=== PATIENT | female | born 1960 | race Caucasian/White ===

== ENCOUNTER → 2021-11-07 07:21 | Outpatient (CLI) | payer OTHER, SELFPAY ==
--- NOTE | ~2021-11-07 | MM_ITS ---
EXAMINATION: MM screening domenica BI w darrick HISTORY: Screening TECHNIQUE: Craniocaudal and mediolateral oblique 3-D tomosynthesis images were obtained and synthetic 2-D images were generated. CAD analysis was submitted and interpreted. COMPARISON: 05/08/2019 BREAST PARENCHYMAL COMPOSITION: The breasts are heterogeneously dense, which may obscure small masses . FINDINGS: There is no evidence of suspicious mass, calcification, or architectural distortion to sugg est malignancy in either breast. There has been no suspicious interval change. IMPRESSION: 1. No mammographic evidence of malignancy. 2. Recommend routine screening mammography in one year. BI-RADS Category 1: Negative Reviewed, dictated and finalized at location A.
== END ==
PROVIDERS: PCP Nurse Practitioner Obstetrics & Gynecology; Visit Provider Nurse Practitioner Obstetrics & Gynecology
DX: Z12.31 Encounter for screening mammogram for malignant neoplasm of breast (principal)
CPT/HCPCS: 77063; 77067

== ENCOUNTER 2025-02-22 12:21 | Emergency (ER) | payer SELFPAY ==
[2025-02-22 12:33] VITALS: BP 141/73; PULSE 72; RESP 16; TEMP 37.1; O2SAT 99
[2025-02-22 12:35] LABS: EDUAAPPEAR Cloudy; EDUABILI Negative (Negative); EDUABLOOD 3+ (Negative); EDUACOLOR1 Yellow; EDUAGLUCOSE Negative (Negative); EDUAKETONE Negative (Negative); EDUALEUKO 1+ (Negative); EDUANITRATE Negative (Negative); EDUAPH 5.5; EDUAPROTEIN Negative (Negative); EDUASPGRAVITY 1.025; EDUAUROBILI 0.2
--- NOTE | 2025-02-22 14:24 | ED_ITS ---
HPI - Female Genitourinary General Chief complaint: Urogenital-Female Stated complaint: Uti Sympyoms Time Seen by Provider: 02/22/25 13:05 Source: patient and RN notes reviewed Mode of arrival: ambulatory Limitations: no limitations History of Present Illness HPI Narrative: 64-year-old female presents Express Care complaining of urinary symptoms for 1 day. Patient reports having dysuria, increased frequency, and hesitancy. Patient denies any fevers, abdominal pain, body aches, chills, nausea, vomiting, hematuria, diarrhea. Patient has not taken anything brol-ptf-bkaixrb for symptoms. Patient denies any significant past medical history. Related Data Allergies Allergy/AdvReac Type Severity Reaction Status Date / Time nickel Allergy Unknown RASH Verified 02/22/25 12:34 Review of Systems Review of Systems: CONSTITUTIONAL: Denies fever, chills, body aches, or sweats. EYES: Denies visual changes, redness, or discharge. ENT: Denies rhinorrhea, congestion, sore throat, or otalgia. CARDIOVASCULAR: Denies chest pain, palpitations, or edema. RESPIRATORY: Denies cough or dyspnea. GASTROINTESTINAL: Denies abdominal pain, nausea, vomiting, or diarrhea. GENITOURINARY: Positive for dysuria, increased frequency and hesitancy. Negative for hematuria. SKIN: Denies rash or itching. MUSCULOSKELETAL: Denies back pain, joint pain, or myalgia. NEUROLOGIC: Denies headache, numbness, or weakness. PSYCHIATRIC: Denies anxiety or depression. All other systems reviewed are negative, except as documented in HPI. [facility] Family History Family History Sibling Family history of gallbladder disease Mother Acute myocardial infarction Social History Social History Smoking status: Current every day smoker Smoking end date: 08/16/07 Alcohol intake: never Comments At the time of my signature, I reviewed and agree with the nursing past medical, surgical, social, and family history. There is no relevant family history pertinent to the patient complaint. Exam Narrative: GENERAL: This is a well-nourished, well-developed adult, in no apparent distress. They are non ill-appearing, nontoxic appearing. HEAD: normocephalic, atraumatic. EYES: Sclera clear/white. Vision is grossly intact. Conjunctiva normal bilaterally. Extraocular movements intact. EARS: External ears normal,Hearing grossly intact. NOSE: External nose normal THROAT: Mucous membranes moist NECK: Normal range of motion CARDIOVASCULAR: Regular rate and rhythm. Normal S1-S2. No clicks, gallops, rubs, murmurs. RESPIRATORY: Respiratory rate normal, respiratory effort nonlabored, no respiratory distress. Lung sounds clear to auscultation throughout. Lung sounds equal bilaterally. No adventitious lung sounds. GASTROINTESTINAL: Abdomen soft, flat, non-tender, nondistended. Bowel sounds are active. No hepato-splenomegaly, or palpable masses. No guarding. No rebound tenderness. SKIN: warm, Dry, intact with no suspicious lesions or rash, good texture and turgor. NEURO: awake, alert, and oriented to person, place and time. There were no obvious focal neurologic abnormalities. EXTREMITIES: No joint tenderness, effusion, or edema noted. BACK: Nontender without deformity. No CVA tenderness. Course Course Emergency Course: Portions of this record may have been created with voice recognition software Level of Care: Express Care Visit Vital Signs Vital signs: Vital Signs Temperature 98.8 F 02/22/25 12:33 Pulse Rate 72 02/22/25 12:33 Respiratory Rate 16 02/22/25 12:33 Blood Pressure 141/73 H 02/22/25 12:33 Pulse Oximetry 99 02/22/25 12:33 Temperature 98.8 F 02/22/25 12:33 Pulse Rate 72 02/22/25 12:33 Respiratory Rate 16 02/22/25 12:33 Blood Pressure 141/73 H 02/22/25 12:33 Pulse Oximetry 99 02/22/25 12:33 MDM - Female Genitourinary MDM Narrative Medical decision making narrative: Urine dipstick shows evidence of urinary tract infection. Urine culture pending. Will treat with Keflex. Discussed physical exam findings. Advised supportive measures and signs/symptoms to go to the ER. Pt is appropriate for outpt treatment and f/u. Differential Diagnosis Differential diagnosis: Likely urinary tract infection, cystitis and other (Pyelonephritis) Lab Data Attestation: I reviewed the patient's lab results. Labs: Lab Results 02/22/25 Range/Units 12:33 POC Urine Color Yellow POC Urine Clarity Cloudy POC Urine pH 5.5 POC Ur Specif Mauldin 1.025 POC Urine Protein Negative (Negative) POC Ur Glucose (UA) Negative (Negative) POC Urine Ketones Negative (Negative) POC Urine Blood 3+ (Negative) POC Urine Nitrite Negative (Negative) POC Urine Bilirubin Negative (Negative) POC Urine Urobilinogen 0.2 POC U Leukocyte Esteras 1+ (Negative) Discharge Plan Discharge Clinical Impression: Urinary tract infection Qualifiers: Urinary tract infection type: site unspecified Hematuria presence: with hematuria Qualified Code(s): N39.0 - Urinary tract infection, site not specified Patient Disposition: Home Condition: Stable Instructions: Antibiotic Form, Urinary Tract Infection in Women (ED) Additional Instructions: Take the antibiotic as prescribed The urine will be sent of for a culture to identify what type of bacteria is causing your infection. If the culture shows that the antibiotic will not get rid of your infection, you will be notified and a new antibiotic will be called in for you. Increase water intake you will need to follow up with your PCP 3-5 days. Go to the ER for any worsening symptoms, abdominal pain, fevers, nausea, vomiting, or any other concerns Patient Language: Ghanaian Prescriptions: New cephalexin 500 mg capsule 500 mg PO BID 5 Days Qty: 10 0RF Follow-up/Referrals: Erick Cortes MD [Primary Care Provider] - Time of Disposition: 13:21
== END 2025-02-22 13:25 | disposition home or self-care (01) ==
PROVIDERS: PCP Family Medicine
DX: N39.0 Urinary tract infection, site not specified (principal); Z87.891 Personal history of nicotine dependence
CPT/HCPCS: 81003; 87086; 99213; G0463

== ENCOUNTER 2025-02-23 19:23 | Emergency (ER) | payer BC, SELFPAY ==
--- NOTE | ~2025-02-23 | CT_ITS ---
CT abdomen pelvis wo con Ordering provider: Edu Licea History: 64 years Female with . kidney stone eval . Comparison: June 11, 2011 Technique: CT abdomen and pelvis without IV and without oral contrast. Automated exposure control and iterative reconstruction technique were employed. The dose-length product was 341.14 mGy-cm. Findings: VISUALIZED LOWER CHEST: Underlying emphysematous changes. UPPER ABDOMINAL ORGANS: Liver: Normal. Tiny cyst seen in the right lobe of the liver near to the gallbladder. Gallbladder: Normal. Spleen: Normal. Stomach/duodenum: Normal. Pancreas: Normal. Adrenals: Normal. Kidneys: Stone in the left lower ureter measuring 5.4 mm with left moderate hydronephrotic changes. P erinephric fat stranding seen which may indicate high-grade obstruction. PELVIC ORGANS: The bladder is underfilled. BOWEL AND MESENTERY: Colon: No evidence of diverticulitis. Normal appendix. Small Bowel: Normal. No obstruction. Peritoneum/mesentery: No free air or free fluid. No mesenteric lymphadenopathy. RETROPERITONEUM: Mild atheromatous disease of the abdominal aorta. No retroperitoneal lymphadenopat hy. MUSCULOSKELETAL: Superficial soft tissues: The superficial soft tissues are normal. Bones: Age appropriate degenerative changes of the spine. Bilateral sacroiliacs. IMPRESSION: 1. Stone in the left lower ureter with moderate hydronephrotic changes. 2. No evidence of appendicitis, diverticulitis or intestinal obstruction. Reviewed, dictated and finalized at location A.
--- OUTSIDE RECORDS SUMMARY | 2025-02-23 19:24 | XMS_ITS | Data Portability ---
Author Organization [facility] [place] Address [address] [place] [address] Assessment Encounter Date Assessment Date Assessment LastModified by Organization Details LastModified Time 06/21/2021 06/21/2021 Annual gynecological exam performed. Patient will come back in a year unless there are new symptoms. [email or web address] Not available 06/21/2021 12:34:15 Plan of Treatment Reminders Order Date Submit Date Provider Last Modified By Organization Details Last Modified Time Details Appointments None recorded. Lab None recorded. Referral gastroenter ologist referral - Please contact Gem to schedule her for a screening colonoscopy appt. If you have any qeustions or require further information , please contact me at [phone]. Thank you, VICK Keene 2020 021 [email or web address] Maverick Castrejon MD, [address], [address], [place], [address], 2 10:21:05 Procedures None recorded. Surgeries None recorded. Imaging None recorded. Medication Orders None recorded. Patient TargetsNo targets recorded. Patient InstructionsNo instructions recorded. 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 If you have any qeustions or require further information, please contact me at [phone]. 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 Elect salinas beebe kennedy d by Franko Hernandez ed, CT on 06/28 at 2:11 PM ----- ----- ----- ----- ----- ----- ----- ----- ----- ----- ----- ----- ----- ----- ----- ----- ----- ---- HPV RESUL TS: HPV mRNA E6/E7 : No HPV mRNA Detec lizette NOTE: This high risk HPV mRNA assay detec ts fourt een high- risk HPV types (16, 18, 31, 33, 35, 39, 45, 51, 52, 56, 58, 59, 66, 68) witho ut diffe renti ation . COMME NT: Note: This speci men was revie wed by a Cytot echno logis t and/o r Patho logis t (as indic ated in this repor t) after evalu ation using the Thinp rep Imagi ng Syste m. CLINI MIKEY INFOR MATIO N: Menst rual Statu s: LMP (if appli cable ): Clini mikey Histo ry/Pr eviou s Pap: Type of Neopl domenic (if appli cable ): Signi fican t Clini mikey Findi ngs: Other Histo ry: Hormo tay (if appli cable ): PAP EDUCA GUILLERMINA L NOTE: The Pap Test is a scree desiree test with an inher ent false negat irvin rate. Liqui d-bas e sampl ing may decre ase, but will not elimi ford, false negat irvin resul ts. A negat irvin resul t does not precl ude the prese nce and/o r devel opmen t of disea se, since the prese nce of abnor mal cells in the sampl e depen ds on the locat ion of the lesio n and sampl ing techn ique. Eliseo nued regul ar scree desiree is the best metho d of cance r preve ntion . If repor lizette cytol ogic findi ng do not corre late with physi mikey and/o r histo rical findi ngs, furth er inves tigat ion is recom maurizio d, as clini wade warra nted. Not Available [facility] (Lab) [address], [place], [address], 06/28/2021 15:14:19 11/08/19 22 11/07/2021 MAMMO , scree desiree, bilat eral No observ ation record ed. [facility] [address], [place], [address], 11/07/2021 20:17:15 11/08/19 22 11/07/2021 MAMMO , scree desiree, bilat eral No observ ation record ed. [facility] [address], [place], [address], 11/07/2021 20:18:42 Result Notes None recorded. 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 16:06:27 Human papillom avirus deoxyrib onucleic acid detected , high risk on cervical specimen [id number] Completed 201806/19/2021 Cervical high risk HPV DNA test positive ;Recorde d Elsewher e: No Locat ion: [facility] S ource: EHR Pediatric Hospitalist tl: N Practi ce ID: [id number] Reyes lable Time: 08:30:00 AM Yelena lugo [facility] 16:06:24 Problem Notes None recorded. Procedures Surgical History Date Name Laterality Status Provider Name and Address Organization Details Recorded Time 06/21/20 21 Date of Last Pap Smear completed Yelena Posada [facility] 06/21/2021 12:34:59 08/16/19 13 lithotripsy completed Yelenasushant Posada [facility] 06/19/2021 16:11:15 08/16/18 85 extraction of wisdom tooth completed Yelenasushant Posada [facility] 06/21/2021 12:37:20 Imaging Results None recorded. Procedure Notes None recorded. Medical Equipment None Reported. Allergies No known drug allergies Medications Not known to be on any medication Vitals Date Recorded Body height Body mass index (BMI) Body weight Systolic And Diastolic Provider Name and Address Organization Details Last Updated DateTime 06/21/2021 177.8 cm 28.6 kg/m2 53018.88 g 120/80 mm[Hg] Yelena Posada [facility] 06/21/2021 12:34:42 Social History Question Answer Notes LastModified by Organizat ion Details LastModified Time Tobacco Smoking Status Current Some Day Smoker Yelena lugo [facility] 06/21/2021 12:37:03 Are You Blind Or Do You Have Difficulty Seeing? No [email or web address] Information n ot available 06/21/2021 What Is Your Level Of Caffeine Consumption? Heavy [email or web address] Information not available 06/21/2021 In The 14 Days Before Symptom Onset, Have You Had Close Contact With A Laboratory-confirm ed COVID-19 While That Case Was Ill? No [email or web address] Information n ot available 06/21/2021 In The 14 Days Before Symptom Onset, Have You Had Close Contact With A Person Who Is Under Investigation For COVID-19 While That Person Was Ill? No [email or web address] Information not available 06/21/2021 Have You Been To An Area Known To Be High Risk For COVID-19? No [email or web address] Information not available 06/21/2021 Are You Deaf Or Do You Have Serious Difficulty Hearing? No [email or web address] Information not available 06/21/2021 What Type Of Diet Are You Following? REGULAR [email or web address] Information n ot available 06/21/2021 Have You Ever Been Counseled For Unhealthy Alcohol Use? No [email or web address] Information not available 06/21/2021 Do You Use Your Seat Belt Or Car Seat Routinely? Yes [email or web address] Information not available 06/21/2021 Do You Have Smoke And Carbon Monoxide Detectors In Your Home? Yes [email or web address] Information not available 06/21/2021 Do You Use Sunscreen Routinely? Yes [email or web address] Information not available 06/21/2021 Has Tobacco Cessation Counseling Been Provided? No [email or web address] Information not available 06/21/2021 Sex: Unknown Functional Status Question Answer Note LastModified by Organizat ion Details LastModified Time Do you use any illicit or recreational drugs? No Information not available 06/21/2021 Do you or have you ever used any other forms of tobacco or nicotine? No [email or web address] Information not available 06/21/2021 What is your level of alcohol consumption? Occasional [email or web address] Information not available 06/21/2021 Are you able to walk? YESWOREST [email or web address] Information not available 06/21/2021 What is your exercise level? Occasional [email or web address] Information not available 06/21/2021 Mental Status Question Answer Note LastModified by Organization D etails LastModified Time Do you feel stressed (tense, restless, nervous, or anxious, or unable to sleep at night)? [id number] [email or web address] Information not available 06/21/2021 Family History Relationship Description Onset Age of this Age Resolved Age Notes LastModified by Organization Details LastModified Time Mother Heart disease [email or web address] Not available 06/19 16:09:10 Maternal Grandmother Malignant tumor of breast [email or web address] Not available 06/19 16:09:21 Father Pulmonary embolism [email or web address] Not available 06/19 16:09:55 Notes:Father: Pulmonary embo lism Maternal grandmother: Cancer, breast Mother: Heart disease Medical History Condition Response Other N Blood Transfusion N Dermatologic Disorders N Gestational Diabetes N Anxiety Disorder N Autoimmune disease N Arthritis N Polyps N Infertility N Acid Reflux (GERD) N Cancer N Varicosities N Stroke N Neurologic/Epilepsy N Fibromyalgia N Headaches N Kidney Disease N Heart Problems N Kidney or Bladder Problems Y Eating Disorder N Art (IVF or FET) N Hepatitis/Liver Disease N No Past Medical History N Urinary Tract Infection N Asthma N Trauma/Violence N Thrombophilias N Allergies (Food, seasonal, environmental ) Y Breast Cancer N Drug/Latex Allergies/Reactions N Lung Disease N Defects or Inherited Disease N Breast Problem N Hematologic disorders N Anesthesia Complications N History of STI N Deep Vein Thrombosis N Polycystic ovary syndrome N History of abnormal pap N Endometriosis N High Cholesterol N Thyroid Problems N GI Problems N Anemia N Psychiatric Illness N Ovarian Cancer N Diabetes N Pulmonary (TB, Asthma) N Eczema N Abuse/Domestic Violence N Depression/ depression N Heart Disease N Pre-Eclampsia N Hypertension N Osteoporosis N Gynecological History Statement/Question Response If Post Menopausal, Age at Menopause 42 Abnormal Pap Y Date of Last Mammogram Date of LMP 08/16/2002 STIs/STDs Y HPV Vaccine N Date of Last Pap Smear 06/21/2021 Sexual Problems? N Current Control Method Menopause LMP Approximate 03/21/2019 Obstetrics History GPAL:G 1 P 1 0 0 1 Type Value Full Term 1 Living 1 Total 1 Past Encounters Encounter ID Performer Location Encounter Start Date Encounter Closed Date Diagnosis/Indication Diagnosis SNOMED-CT Code Diagnosis ICD10 Code Diagnosis Note [id number] Ivonne Lund [facility] [address] [address] 06/21/2021 12:25:36 06/23/2021 10:41:35 Gynecologic examination 98919336 Z01.419 Take Calcium with Vitamin D 12-1500mg daily. Do monthly self breast exams. It is advised to get annual flu shot in the fall and she could obtain at [facility] or [facility] care clinic. If you haven't received the Tdap vaccine in the last 10 years you should obtain one as well. Have mammogram yearly, bone density every 2-3 years and colonoscop y every 5-10 years depending on findings and history. Engage in daily exercise of low impact aerobic exercise 45-60 minutes 4-5 times weekly. Avoid tobacco and illicit drugs as well as using moderation with alcohol intake less than 1-2 8 oz beverages daily. This lifestyle behavior pattern will lead to less health conditions and longer life span. If BMI greater than 25 weight watchers or dietary consult advised. Questions have been answered. Patient appears to understand instructio ns, but if you have any further questions call or respond to this email Pap/hpv sentSmoker -smoking cessation encouraged Est care with a PCP (Given [facility] in [place], [place]).Dexa-c onsider no later than age 60yo since postmenopa use & smoker.Minerva mo -orderedCo lisa-Recomm ended & orderedDec lines std screen Screening colonoscopy 44 [id number] Z12.11 Never had Colon screening Health Concerns Section Related Observation LastModified by Organization Detai ls LastModified Time None Recorded Concern Status LastModified by Organization Details LastModified Time None Recorded Advance Directives Directive None Recorded Payers Insurance Date Sequence Insurance Name Policy Number Policy Franco Covered Member ID Franco Member ID Guarantor Name 02/25/2022 1 [facility] [id number] Gem Parks [id number] Gem Parks Notes Date Note Type Note Provider Name and Address Organization Details Recorded Time 06/21/2021 text/html Annual 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 Officer Post-MenopausalRe ported bypatient.[place] ag Symptoms:no menopausal symptoms; normal vaginal lubrication Vaginal Bleeding:history of menopause having occurred; no history of post menopausal bleeding Urinary Symptoms:no hematuria; no incontinence; no nocturia; no urinary frequency Vulva:no genital lesion; no vulvar atrophy Vagina:normal vaginal discharge; no vaginal atrophy Breast:no breast lump; no nipple discharge; no breast pain Sexual Complaints:no sexual complaints Psychological Symptoms:no depression; no anxiety Preventive Measures:encourag e regular mammograms starting age 40; encourage self breast examination; encourage regular exercise; encourage no tobacco use (Current Smoker); needs to schedule mammogram; needs to schedule colonoscopy; needs to schedule bone density (Consider with her risk factors earlier than 60-65yo.) Ivonne Lund, [facility]- [address], [place], [address], [facility] 06/21/2021 13:24:38 OBGyn Episode Ob Episode Information Episode Created Date Number of Fetuses Patient Bloodtype Patient rh Status Prepregnancy Weight lbs Domestic Partner Domestic Partner Phone Father Name Inspector Packer Glass Container Status 06/19/20 21 1 CLOSED Fetus Data First Name Last Name Admitted to NICU Weight (g) Sex Living Outcome Pediatric Complications Fetus ID Race Codes Race Delivery Type 3940.35 3704 M Full Term [id number] Vaginal Delivery Saran Calculation Initial Saran Date Initial Exam Date Initial Exam Provider Initial Ultrasound Date Last Menstrual Period Date Ultra Sound Weeks Gestation 0 Eighteen To Twenty Week Saran Update Ultra Sound Date Fundal Height At Umbil Quickening Date Ultra Sound Latest Weeks Gestation Final Saran Confirmed By Final Saran Confirmed Date Final Saran Date Ultra Sound Latest Days Gestation 0 0 Menstrual History Last Menstrual Date Menses Monthly On Bcp Conception Prior Menses Frequency Hcg Plus Date Menarche Onset Age Delivery Information Delivery Date Delivery Type Labor Anesthesia Weeks Gestation Incision Type Labor Labor Length Hrs Delivered By Post Complications Tubal Sterilization Discharge Date Comments 2 40 Discharge Information Feeding Method Contraceptive Method Maternal HG B and HCT Levels
--- OUTSIDE RECORDS SUMMARY | 2025-02-23 19:24 | XMS_ITS | Clinical Summary ---
Author Organization [facility] [address] [place] [address] [place] [address] [place] [address] Care Team Providers Care External Grinder Tender Name Role Phone Unavailable Primary Care Provider Unavailabl e Allergies Active Allergy Reactions Criticality Noted Date Comments Azithromycin Nausea and Vomiting Low 04/12/2020 Medications valACYclovir (VALTREX) 1 gram tablet Take 1 Tablet (1,000 mg) by mouth 3 times daily. 21 Tablet 04/12/2020 Active Social History Tobacco Use Types Packs/Day Years Used Date Smoking Tobacco: Some Days Alcohol Use Standard Drinks/Week Comments Yes 0 (1 standard drink = 0.6 oz pur e alcohol) Comments No Sex and Gender Information Value Date Recorded Sex Assigned at Not on file Legal Sex Female 8:18 AM CDT Gender Identity Not on file Sexual Orientation Not on file Last Filed Vital Signs Vital Sign Reading Time Taken Comments Blood Pressure 129/75 04/12/2020 8:35 AM CDT Pulse 87 04/12/2020 8:35 AM CDT Temperature 36.7 C (98.1 F) 04/12/2020 8:35 AM CDT Respiratory Rate 17 04/12/2020 8:35 AM CDT Oxygen Saturation 100% 04/12/2020 8:35 AM CDT Inhaled Oxygen Concentration - - Weight 81.6 kg (180 lb) 04/12/2020 8:35 AM CDT Height 177.8 cm (5' 10) 04/12/2020 8:35 AM CDT Body Mass Index 25.83 04/12/2020 8:35 AM CDT Plan of Treatment Health Maintenance Due Date Last Done Comments DTAP/TDAP/TD VACCINES (1 - Tdap) 1981 HPV/Cotest (21-29) 1983 CERVICAL CANCER SCREENING 1992 HPV/Cotest (30-65) 1992 PAP SMEAR 1992 BREAST CANCER SCREENING 2002 COLORECTAL SCREENING 2007 Colorectal Cancer Screening 2007 FIT-DNA Q 3 years 2007 FIT/FOBT Q 1 year 2007 Flex Sig/CT Colonography Q 5 years 2007 ZOSTER VACCINE (1 of 2) 2012 INFLUENZA VACCINE (#1) 2025 RSV VACCINE (60+ or ) (1 - 1-dose 75+ series) 2037 Insurance
--- OUTSIDE RECORDS SUMMARY | 2025-02-23 19:24 | XMS_ITS | Clinical Summary ---
Author Organization [facility] [email or web address] Address [address] [place] [address] Care Team Providers Care Business Services Sales Representative Name Role Phone Unavailable Primary Care Provider Unavailabl e Source Comments [facility] [email or web address],non-owned Affiliates and Associated Physician Practices is amultiple site organization consisting of ambulatory clinics and hospital sitesin [place], [place], [place] and [place]. This disclosure is being madepursuant to the Care Everywhere program and may not contain all information available regarding this patient. Last updated 18.[facility] [email or web address] Allergies No known active allergies Medications * Be aware that medications may not be up to date on this document. Alwaysverify current medications with the patient. 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 Gender Identity Not on file Sexual Orientation Not on file Last Filed Vital Signs Vital Sign Reading Time Taken Comments Blood Pressure 120/72 08/28/2018 12:49 PM BINDERY HELPER Pulse 77 08/28/2018 12:49 PM BINDERY HELPER Temperature 37.1 C (98.8 F) 08/28/2018 12:49 PM BINDERY HELPER Respiratory Rate - - Oxygen Saturation 96% 08/28/2018 12:49 PM BINDERY HELPER Inhaled Oxygen Concentration - - Weight 81.6 kg (180 lb) 08/28/2018 12:49 PM BINDERY HELPER Height 177.8 cm (5' 10) 08/28/2018 12:49 PM BINDERY HELPER Body Mass Index 25.83 08/28/2018 12:49 PM BINDERY HELPER Plan of Treatment Health Maintenance Due Date Last Done Comments COLOGUARD (AGES 45-75) - COL ON CA SCREENING 1962 COLON MONITORING 1962 COLONOSCOPY - COLON CA SCREENING 1962 CT COLONOGRAPHY - COLON CA SCREENING 1962 Colorectal Cancer Screening 1962 FIT - COLON CA SCREENING 1962 FLEX SIG - COLON CA SCREENING 1962 LIPID TESTING 1962 MAMMOGRAM 1962 HIV SCREENING 1977 HEPATITIS C SCREENING 09/17/1980 DTAP/TDAP/TD VACCINES (1 - Tdap) 1981 PNEUMOCOCCAL VACCINE 50+ (1 of 1 - PCV) 2012 ZOSTER VACCINE (1 of 2) 2012 SCREENING FOR DIABETES 08/28/2018 COVID-19 VACCINE (1 - 2023-2 5 season) 2024 DEPRESSION SCREENING 08/16/2024 INFLUENZA VACCINE (#1) 2025 Respiratory Syncytial Virus (RSV) Vaccine Pt: or over 60 yrs (1 - 1-dose 75+ series) 2037 HEPATITIS B VACCINE Aged Out No longe r eligible based on patient's age to complete this topic HIB VACCINE Aged Out No longer eligi ble based on patient's age to complete this topic HPV VACCINE Aged Out No longer eligi ble based on patient's age to complete this topic MENINGOCOCCAL (Group B) VACC INE SHARED DECISION-MAKING Aged Out No longer eligibl e based on patient's age to complete this topic MENINGOCOCCAL GROUPS A/C/Y/W VACCINE Aged Out No longer eligible b ased on patient's age to complete this topic Insurance [facility]
[2025-02-23 19:39] VITALS: BP 141/99; PULSE 84; RESP 16; TEMP 36.9; O2SAT 100
[2025-02-23 23:02] VITALS: BP 129/75; PULSE 76; RESP 14; O2SAT 96
[2025-02-23 23:16] LABS: Add Urine Microscopic? YES; Appearance Urine Clear (Clear); Glucose Urine UA Negative (Negative); Leukocyte Esterase Ur 1+ LEU/UL (Negative); Need Manual Microscopic Reviewed; Nitrate Urine Negative (Negative); Non Pathogenic Casts 0-2; Specific Grav Ur 1.026 (1.001-1.035)
--- OUTSIDE RECORDS SUMMARY | 2025-02-23 23:26 | XMS_ITS | Clinical Summary ---
Author Organization [facility] [address] [place] [address] [place] [address] [place] [id number] Care Team Providers Care Hydro Plant Technician Name Role Phone Unavailable Primary Care Provider [...]
--- OUTSIDE RECORDS SUMMARY | 2025-02-23 23:26 | XMS_ITS | Clinical Summary ---
Author Organization [facility] Address [address] [place] [address] Care Team Providers Care Cellophane Worker Name Role Phone Unavailable Primary Care Provider Unavailabl e Source Comments [facility],non-owned Affiliates and Associated Physician Practices is amultiple site organization consisting of ambulatory clinics and hospital sitesin [place], [place], [place] and [place]. This disclosure is being madepursuant to the Care Everywhere program and may not contain all information available regarding this patient. 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 Gender Identity Not on file Sexual Orientation Not on file Last Filed Vital Signs Vital Sign Reading Time Taken Comments Blood Pressure 120/72 08/28/2018 12:49 PM PRODUCTION CLOTH CUTTER Pulse 77 08/28/2018 12:49 PM PRODUCTION CLOTH CUTTER Temperature 37.1 C (98.8 F) 08/28/2018 12:49 PM PRODUCTION CLOTH CUTTER Respiratory Rate - - Oxygen Saturation 96% 08/28/2018 12:49 PM PRODUCTION CLOTH CUTTER Inhaled Oxygen Concentration - - Weight 81.6 kg (180 lb) 08/28/2018 12:49 PM PRODUCTION CLOTH CUTTER Height 177.8 cm (5' 10) 08/28/2018 12:49 PM PRODUCTION CLOTH CUTTER Body Mass Index 25.83 08/28/2018 12:49 PM PRODUCTION CLOTH CUTTER Plan of Treatment Health Maintenance Due Date [...] patient's age to complete this topic Insurance [facility]
[2025-02-23 23:27] LABS: Alanine Aminotransferase 20 U/L (6-35); Albumin Level 4.5 g/dL (3.5-5.1); Alkaline Phosphatase 82 U/L (38-126); Anion Gap 10 mmol/L (4-12); Aspartate Amino Transferase 42 U/L (14-36); Bilirubin,Total 0.7 mg/dL (0.2-1.3); Blood Urea Nitrogen 19 mg/dL (7-17); Calcium 9.6 mg/dL (8.4-10.2); Carbon Dioxide 20 mmol/L (22-30); Chloride 109 mmol/L (98-107); Estimated CRCL calculation 62 ml/min; Estimated Glomerular Filt Rate 55; Glucose 118 mg/dL (65-110); Lipase 66 U/L (23-300); Potassium 4.3 mmol/L (3.4-5.0); Sodium 139 mmol/L (137-145); Total Protein 7.8 g/dL (6.3-8.2)
[2025-02-23 23:51] LABS: Hematocrit 44.4 % (37.0-47.0); Hemoglobin 14.4 g/dL (12.0-15.0); Immature Granulocyte Percent A 0.3 % (0-0.5); Lymphocytes Absolute Auto 2.00 K/mm3 (0.9-3.2); Mean Corpuscular HGB Conc 32.4 g/dl (32-36); Mean Corpuscular Hemoglobin 28.8 pg (26-34); Mean Corpuscular Volume 88.8 fl (80-100); Nucleated Red Blood Cells Absolute Auto 0.000 K/mm3 (0.0-0.012); Nucleated Red Blood Cells Perc 0.0 % (0.0-0.2); Platelet Count Result 280 k/mm3 (150-375); Red Blood Count 5.00 M/mm3 (4.2-5.4); White Blood Count 11.4 K/mm3 (4.5-10.0)
--- NOTE | 2025-02-23 23:58 | ED_ITS ---
HPI - Female Genitourinary General Chief complaint: Urogenital-Female Stated complaint: FLANK L SIDED ABD PAIN Time Seen by Provider: 02/23/25 23:00 History of Present Illness HPI Narrative: Patient is a 64-year-old female who presents to the emergency department this evening complaining of lower suprapubic abdominal pain radiating to her left flank. Admits that she does have a history of kidney stones and states this feels similar. Was seen at our urgent care yesterday and diagnosed with a UTI and started on antibiotics. Denies any recent illness, fevers or chills. No additional symptoms or concerns at this time. Related Data Allergies Allergy/AdvReac Type Severity Reaction Status Date / Time nickel Allergy Unknown RASH Verified 02/23/25 19:23 Review of Systems 2 Review of Systems: All systems are reviewed and are negative unless stated otherwise in the HPI. [facility] Family History Family History Sibling Family history of gallbladder disease Mother Acute myocardial infarction Social History Social History Smoking status: Current every day smoker Smoking end date: 08/16/07 Alcohol intake: never Exam 2 Narrative: General: Alert, awake, afebrile, in no acute distress. HEENT: PERRL, no rhinorrhea, no post nasal drip, oropharynx clear. Neck: Trachea midline, no JVD, no lymphadenopathy. Cardiovascular: Regular rate and rhythm, no murmurs, rubs or gallops, no peripheral edema. Respiratory: Clear to auscultation bilaterally, no tachypnea, no wheezing, no rhonchi, no rubs, no respiratory distress. Abdomen: Soft, nontender, nondistended, no rebound, no guarding, no peritoneal signs. Musculoskeletal: No joint swelling or deformity, normal muscle tone. Skin: No rashes or petechia, no signs of infection. Psychiatric: Alert and oriented, normal behavior and judgment for situation. Neurological: Alert and oriented to person, place, and time. Follows all commands. No focal deficits, speech is clear and fluent. Course Vital Signs Vital signs: Vital Signs Temperature 98.4 F 02/23/25 19:39 Pulse Rate 84 02/23/25 19:39 Respiratory Rate 16 02/23/25 19:39 Blood Pressure 141/99 H 02/23/25 19:39 Pulse Oximetry 100 02/23/25 19:39 Oxygen Delivery Room Air 02/23/25 19:39 Temperature 98.4 F 02/23/25 19:39 Pulse Rate 76 02/23/25 23:02 Respiratory Rate 14 02/23/25 23:02 Blood Pressure 129/75 02/23/25 23:02 Pulse Oximetry 96 02/23/25 23:02 Oxygen Delivery Room Air 02/23/25 19:39 MDM - Female Genitourinary MDM Narrative Medical decision making narrative: The patient was evaluated by myself in the emergency department. History is obtained from patient who is an independent historian and physical exam was performed. External medical records were reviewed at this time. IV was established and pertinent tests were ordered. Patient was administered 15 mg of IV Toradol for pain. Laboratory results obtained revealing no acute process. Urinalysis did reveal hematuria otherwise no evidence of UTI. Imaging studies obtained included CT abdomen pelvis without IV contrast which was independently interpreted by me revealing: IMPRESSION: 1. Stone in the left lower ureter with moderate hydronephrotic changes. 2. No evidence of appendicitis, diverticulitis or intestinal obstruction. Differential diagnosis considerations include kidney stones, pyelonephritis, urinary tract infection, dehydration, electrolyte derangements. Comorbidities impacting this visit include history of kidney stones. I have evaluated and discussed social determinants of health with the patient that could potentially impact subsequent diagnosis and treatment plans. On repeat assessment of the patient, reevaluation revealed that the patient is doing well and is in no acute distress. Patient symptoms have improved since she arrived to our emergency department. Repeat vital signs were all reviewed and noted to be stable. Differential diagnosis and treatment plan were discussed with the patient at bedside. Patient agrees with discussion and after shared medical decision making agrees with discharge. All questions were answered to the patient's satisfaction. Patient will follow up with her Urologist in 3-5 days. Script for Zofran, Leroy, ibuprofen and Flomax were sent to patient's pharmacy to take as prescribed for her kidney stone. Patient was provided with strict return precautions and instructed to return to the emergency department if any new or worsening symptoms develop. The patient was discharged in stable condition. Lab Data 02/23/25 23:43 02/23/25 22:36 Labs: Lab Results 02/23/25 02/23/25 02/23/25 Range/Units 22:36 22:53 23:43 WBC 11.4 H (4.5-10.0) K/mm3 RBC 5.00 (4.2-5.4) M/mm3 Hgb 14.4 (12.0-15.0) g/dL Hct 44.4 (37.0-47.0) % MCV 88.8 (80-100) fl MCH 28.8 (26-34) pg MCHC 32.4 (32-36) g/dl RDW 12.5 (11.5-14.5) % Plt Count 280 (150-375) k/mm3 MPV 10.6 H (7.4-10.4) fl Immature Gran % (Auto) 0.3 (0-0.5) % Neut % (Auto) 71.9 (45.5-73.1) % Lymph % (Auto) 17.5 L (18.3-44.2) % [place] % (Auto) 9.1 H (2.6-8.5) % Eos % (Auto) 0.8 (0-4.4) % Baso % (Auto) 0.4 (0.2-1.2) % Lymph # (Auto) 2.00 (0.9-3.2) K/mm3 [place] # (Auto) 1.0 H (0.1-0.6) K/mm3 Eos # (Auto) 0.1 (0-0.3) K/mm3 Baso # (Auto) 0.1 (0.0-0.1) K/mm3 Abs Immat Gran (auto) 0.03 (0.00-0.031) K/mm3 Absolute Neuts (auto) 8.2 H (1.3-6.7) K/mm3 Absolute Nucleated RBC 0.000 (0.0-0.012) K/mm3 Nucleated RBC % 0.0 (0.0-0.2) % Sodium 139 (137-145) mmol/L Potassium 4.3 (3.4-5.0) mmol/L Chloride 109 H (98-107) mmol/L Carbon Dioxide 20 L (22-30) mmol/L Anion Gap 10 (4-12) mmol/L BUN 19 H (7-17) mg/dL Creatinine 1.02 H (0.7-1.0) mg/dL Estim Creat Clear Calc 62 ml/min Estimated GFR 55 L (59 - ) Glucose 118 H (65-110) mg/dL Calcium 9.6 (8.4-10.2) mg/dL Total Bilirubin 0.7 (0.2-1.3) mg/dL AST 42 H (14-36) U/L ALT 20 (6-35) U/L Alkaline Phosphatase 82 (38-126) U/L Total Protein 7.8 (6.3-8.2) g/dL Albumin 4.5 (3.5-5.1) g/dL Lipase 66 (23-300) U/L Urine Color Yellow (Yellow) Urine Appearance Clear (Clear) Urine pH 6.5 (5.0-9.0) Ur Specific [place] 1.026 (1.001-1.035) Urine Protein Trace (Negative) mg/dL Urine Glucose (UA) Negative (Negative) mg/dL Urine Ketones Trace H (Negative) mg/dL Ur Blood (Man) Negative (Negative) Urine Nitrate Negative (Negative) Urine Bilirubin Negative (Negative) Urine Urobilinogen 1.0 (<2.0) mg/dL Add Ur Microanalysis Reviewed Leukocyte Esterase Rfl 1+ H (Negative) RAFFI/UL Urine RBC 6-10 H (0-2) /hpf Urine WBC 0-5 (0-3) /hpf Ur Squamous Epith Cells None seen (Few) /hpf Urine Bacteria None seen /hpf Urine Casts 0-2 Urine Mucus Present /lpf Discharge Plan Discharge Clinical Impression: Kidney stone, Hydronephrosis, left Patient Disposition: Home Condition: Improved Instructions: Antibiotic Form, Kidney Stones (ED) Additional Instructions: Please follow-up with your urologist within the next 3-5 days return to the emergency department if any new or worsening symptoms develop. Take the prescribed medications as instructed to help passed 2 kidney stone. Patient Language: Portuguese Prescriptions: New hydrocodone-acetaminophen 5-325 mg tablet 1 tablet PO Q8H PRN (Reason: pain) Qty: 14 0RF ondansetron 4 mg tablet,disintegrating 4 mg PO Q8H PRN (Reason: nausea and vomiting) Qty: 14 0RF tamsulosin [Flomax] 0.4 mg capsule 0.4 mg PO DAILY Qty: 14 0RF ibuprofen 400 mg tablet 400 mg PO Q6H PRN (Reason: pain) Qty: 20 0RF No Action cephalexin 500 mg capsule 500 mg PO BID 5 Days Qty: 10 0RF Follow-up/Referrals: Robbie Dong MD [Physician] - 3 Days PHYSICIAN,BOILER SETTER [Primary Care Provider] - Time of Disposition: 23:58
[2025-02-24] MEDS: KETOROLAC 15 MG/ML VIAL (*BKC) IV PUSH (00:08)
[2025-02-24] MEDS: ONDANSETRON HCL ODT 4 MG TABLET PO (00:17)
[2025-02-24 00:29] VITALS: BP 126/79; PULSE 79; RESP 16; O2SAT 99
[2025-02-24 00:31] VITALS: BP 126/79; PULSE 79; RESP 16; O2SAT 99
== END 2025-02-24 00:35 | disposition home or self-care (01) ==
PROVIDERS: Physician Assistant; Emergency Provider Emergency Medicine
DX: N13.2 Hydronephrosis with renal and ureteral calculous obstruction (principal); Z87.891 Personal history of nicotine dependence
CPT/HCPCS: 36415; 74176; 80053; 81001; 83690; 85025; 87086; 96374; 96375; 99284; A9270; J1885; J2405